=== PATIENT | female | born 1970 | race Two or more races ===

== ENCOUNTER 2025-01-23 12:00 | Inpatient (IN) | payer OTHER ==
[~2025-01-23] VITALS: Ht 147.3 cm; Wt 61.7 kg
[2025-01-23 13:18] VITALS: BP 134/87
[2025-01-23] MEDS ORDERED: LEXAPRO20 MG PO (13:22)
[2025-01-23] MEDS ORDERED: ZESTRIL10 M1 PO (13:22)
[2025-01-23] MEDS ORDERED: PROTONIX40 MG PO (13:23)
[2025-01-23] MEDS ORDERED: CLONAZEPAM1 MG PO (13:23)
[2025-01-23] MEDS ORDERED: RAMELTEON8 MG PO (13:24)
[2025-01-23] MEDS ORDERED: RESTORIL30 M1 PO (13:24)
[2025-01-23] MEDS ORDERED: ROZEREM8 MG PO (13:25)
[2025-01-23] MEDS ORDERED: LYRICA50 MG PO (13:26)
[2025-01-23] MEDS ORDERED: HYDRODIURIL12.5 MG PO (13:26)
[2025-01-28] MEDS ORDERED: CIPROFLOXACIN IN 5 % DEXTROSE 400 MG/200 ML PIGGYBAG IV ONE (07:47)
[2025-01-28] MEDS ORDERED: SUGAMMADEX SODIUM 200 MG/2 ML VIAL IV ONE (12:09)
[2025-01-28] MEDS ORDERED: MORPHINE SULFATE 4 MG/ML CARTRIDGE IV PRN (12:45)
[2025-01-28] MEDS ORDERED: MORPHINE SULFATE 4 MG/ML VIAL IV ONE ×2 (13:15→16:30)
[2025-01-28] MEDS ORDERED: ACETAMINOPHEN 500 MG GEL..CAP PO SCH (14:00)
[2025-01-28] MEDS ORDERED: ATORVASTATIN CA10 MG (14:18)
[2025-01-28] MEDS ORDERED: RISPERIDONE1 MG (14:18)
[2025-01-28] MEDS ORDERED: DICLOFENAC SODI50 MG (14:18)
[2025-01-28] MEDS ORDERED: ENALAPRILAT DIHYDRATE 1.25 MG/ML VIAL IV PRN (15:45)
[2025-01-28] MEDS ORDERED: TEMAZEPAM 15 MG CAPSULE PO PRN (15:45)
[2025-01-28] MEDS ORDERED: ENOXAPARIN SODIUM 40 MG/0.4 ML SYRINGE SUBCUTANEO ONE (16:42)
[2025-01-28] MEDS ORDERED: ENOXAPARIN SODIUM 40 MG/0.4 ML SYRINGE SUBCUTANEO SCH (17:00)
[2025-01-28 17:11] VITALS: BP 154/76; O2SAT 94
[2025-01-28] MEDS ORDERED: METRONIDAZOLE/SODIUM CHLORIDE 500 MG/100 ML PIGGYBACK IV SCH (21:00)
[2025-01-28] MEDS ORDERED: FAMOTIDINE/PF 20 MG in 0.9 % SODIUM CHLORIDE 8 ML IV PUSH SCH (21:00)
[2025-01-29 01:33] VITALS: BP 116/68; O2SAT 100
[2025-01-29 08:11] VITALS: BP 113/68; O2SAT 97
[2025-01-29] MEDS ORDERED: LISINOPRIL 10 MG TABLET PO SCH (09:00)
[2025-01-29] MEDS ORDERED: HYDROCHLOROTHIAZIDE 12.5 MG CAPSULE PO SCH (09:00)
[2025-01-29] MEDS ORDERED: CEFTRIAXONE SODIUM 2,000 MG VIAL IV SCH (09:00)
[2025-01-29 16:56] VITALS: BP 111/72; O2SAT 99
[2025-01-30 01:00] VITALS: BP 110/70; O2SAT 93
[2025-01-30 08:31] VITALS: BP 139/79; O2SAT 95
== END 2025-01-30 14:07 | disposition home or self-care (01) | DRG 331 ==
LOC: SURG 01-28 07:00 → SURH 01-28 07:00 → O/R 01-28 07:00 → SURH 01-28 12:00 → SURG 01-28 14:29 → SURH 01-30 12:00 → SURG 01-30 14:07
PROVIDERS: ADMIT Surgery; ATTEND Surgery
PROC: 0DBG4ZZ Excision of Left Large Intestine, Percutaneous Endoscopic Approach (ICD-10-PCS; principal; 2025-01-28 07:00)
DX: C18.6 Malignant neoplasm of descending colon (principal); I10 Essential (primary) hypertension